=== PATIENT | male | born 1970 | race Caucasian/White ===

== ENCOUNTER 2016-10-13 09:02 | Day surgery (SDC) | payer OTHER ==
[2016-10-11 18:03] VITALS: BMI 35.4
[2016-10-13 09:33] LABS: BASOPHIL 0.9 % (0-2.0); EOSINOPHIL 3.3 % (0-4.5); MCH 31.2 pg (25.7-33.7); MCHC 33.9 g/dl (32.0-35.9); MEAN PLT VOLUME 8.7 fl (7.5-11.1); NEUTROPHILS 63.7 % (42.8-82.8); PLATELET COUNT 158 K/MM3 (134-434); RDW 13.3 % (11.9-15.9); WHITE BLOOD COUNT 6.3 K/mm3 (4.0-10.0)
[2016-10-13 10:35] LABS: ALBUMIN 3.5 g/dl (3.4-5.0); ALK PHOS 73 U/L (45-117); ANION GAP 10 (8-16); BILIRUBIN,TOTAL 0.6 mg/dL (0.2-1.0); CALCIUM 8.6 mg/dL (8.5-10.1); CO2 26 mmol/L (21-32); CREATININE 1.1 mg/dL (0.7-1.3); GLUCOSE,RANDOM 93 mg/dL (74-106); SGOT/AST 62 U/L (15-37); SGPT/ALT 59 U/L (12-78)
[2016-10-13] MEDS ORDERED: LIDOCAINE HCL 1%, 10 MG/ML (20ML VIAL) ONE (11:23)
[2016-10-13] MEDS ORDERED: HEPARIN NA (PORCINE) 5,000 UNITS/ML 1ML VIAL ONE ×2 (11:23→12:31)
[2016-10-13] MEDS ORDERED: oxyCODONE HCL 5 MG TABLET PO PRN (11:51)
[2016-10-13] MEDS ORDERED: PROMETHAZINE HCL 25 MG/1 ML VIAL IVPUSH PRN (11:51)
[2016-10-13] MEDS ORDERED: ONDANSETRON 4 MG/2 ML VIAL IVPUSH PRN (11:51)
[2016-10-13] MEDS ORDERED: MIDAZOLAM HCL 2 MG/2 ML SINGLE DOSE VIAL ONE ×2 (11:56→11:58)
[2016-10-13] MEDS ORDERED: LACTATED RINGERS SOLUTION 1,000 ML IV SCH (12:00)
[2016-10-13] MEDS ORDERED: ceFAZolin SODIUM 1 GM VIAL IVPB ONE (12:00)
[2016-10-13] MEDS ORDERED: ceFAZolin SODIUM 1 GM VIAL ONE (12:08)
[2016-10-13] MEDS ORDERED: LIDOCAINE HCL 1%, 10 MG/ML (50 mL VIAL) IJ ONE (12:12)
--- NOTE | 2016-10-13 13:01 | HP ---
Admitting History and Physical - Admission History of Present Illness: left lower ext claudication - Past Medical History Cardiovascular: Yes: Deep Vein Thrombosis (DVTs in left leg 2013, 2014), Hyperlipdemia - Smoking History Smoking history: Former smoker Have you smoked in the past 12 months: No If you are a former smoker, when did you quit?: 1989 - Alcohol/Substance Use Hx Alcohol Use: No Home Medications - Allergies Allergies/Adverse Reactions: Allergies Allergy/AdvReac Type Severity Reaction Status Date / Time No Known Drug Allergies Allergy Verified 10/13/16 09:44 - Home Medications Home Medications: Ambulatory Orders Gabapentin 400 mg PO TID 08/03/15 Sproul-3 Fatty Acids [Sproul-3] 1,000 mg PO DAILY 10/27/15 Ambien 10 mg PO HS 11/23/15 Rivaroxaban [Xarelto] 20 each PO DAILY #60 mg 02/08/16 Lasix - 20 mg PO Q2D 04/22/16 Oxycodone HCl 10 mg PO QID #120 tablet MDD 4 09/12/16 Physical Examination Vital Signs: Vital Signs Temperature 97.9 F 10/13/16 09:34 Pulse Rate 59 L 10/13/16 09:34 Respiratory Rate 16 10/13/16 09:34 Blood Pressure 128/84 10/13/16 09:34 O2 Sat by Pulse Oximetry (%) 97 10/13/16 09:36 Constitutional: Yes: Well Nourished Eyes: Yes: WNL HENT: Yes: WNL Neck: Yes: WNL Cardiovascular: Yes: WNL Respiratory: Yes: WNL Gastrointestinal: Yes: WNL Labs: CBC, BMP 10/13/16 09:22 10/13/16 09:22 Assessment/Plan Left lower ext claudication 1. for angiogram today
--- NOTE | 2016-10-13 13:04 | OP ---
Operative Note - Note: Operative Date: 10/13/16 Pre-Operative Diagnosis: LLE claudication Operation: Aortogram, LLE angiogram, Popliteal artery DCB angioplasty Findings: 75% stenosis distal popliteal artery Post-Operative Diagnosis: Same as Pre-op Surgeon: Loc Ramirez Anesthesia: Fractional Estimated Blood Loss (mls): 10 Operative Report Dictated: Yes
[2016-10-13 14:11] VITALS: TEMP 98.1
[2016-10-13 14:59] VITALS: BP 145/68; PULSE 56
--- NOTE | 2016-10-14 11:15 | OP ---
DATE OF OPERATION: 10/13/2016 PREOPERATIVE DIAGNOSIS: Left lower extremity claudication. POSTOPERATIVE DIAGNOSIS: Left lower extremity claudication. PROCEDURE: Aortogram, left lower extremity angiogram, popliteal artery drug-coated balloon angioplasty. SURGEON: Loc Juárez DO ANESTHESIA: Fractional. BLOOD LOSS: 10 mL. INDICATIONS: The patient is a 46-year-old male who comes in to our office with left lower extremity claudication. He has had an extensive history in his left lower extremity where he had thrombosis and he had open thrombectomy performed in the past with stent placement. He now had an ultrasound with us showing that beyond the stent in the popliteal artery below the knee he has a stenotic area of about 50%-70%, and now he is complaining of claudication at this juncture. It was decided that he would need an angiogram, and the patient came in through ambulatory surgery. The patient was consented for this procedure understanding all risks, benefits, and alternatives and was then taken to the operating room. DESCRIPTION OF PROCEDURE: Once in the operating room, he was laid on the operating room table in a supine manner. The area of the right groin was prepped and draped in a sterile surgical manner. We then injected 10 mL of lidocaine 2% in the area. We then went ahead and used our micropuncture needle to puncture the right common femoral artery. We placed our micropuncture wire and micropuncture sheath in a traditional 5-Arabic sheath. We then placed a 0.035 floppy guidewire up into the aorta followed by an Omni Flush catheter. We then shot an aortogram via hand injection showing that the aorta and the iliac arteries were without any disease. We then placed a 0.025 stiff guidewire up and over to the common femoral artery followed by an Omni Flush catheter. We then shot an angiogram of the left lower extremity showing that the common femoral artery, the profunda, the SFA is patent. The popliteal artery stent is patent, but beyond the stent there is a 70% stenosis in the below knee popliteal artery and the TP trunk. The patient's main runoff is the posterior tibial artery into the foot. At this point, we placed a 0.035 stiff guidewire down to the SFA. We took out our Omni Flush catheter and placed a 6 x 55 crossover sheath. We then went ahead and selectively crossed through the stent and down through the distal popliteal artery and placed it behind the posterior tibial artery. We then used a 5 x 4 Bard Lutonix drug-coated balloon and performed angioplasty of the below knee popliteal artery and the distal stent. Completion angiogram now showed that the popliteal artery was patent. There was good brisk flow, and there was good runoff into the foot. We then went ahead and brought our sheath up and over, and StarClose device was successfully deployed in the right common femoral artery. Pressure held for 5 minutes. After there was no bleeding, the area was wet and dried, and Dermabond was placed. During the procedure, the patient received 5000 units of IV heparin. The patient was transferred to the PACU in stable condition where the patient had a palpable PT pulse. LOC JUÁREZ DO NP/[id number]
== END 2016-10-13 15:14 | disposition home or self-care (01) ==
LOC: JASU-SURG 09:02
PROVIDERS: ATTEND Surgery Vascular Surgery
PROC: 047N3D1 Dilation of Left Popliteal Artery with Intraluminal Device, using Drug-Coated Balloon, Percutaneous Approach (ICD-10-PCS; principal; 2016-10-13 09:30)
DX: I70.212 Atherosclerosis of native arteries of extremities with intermittent claudication, left leg (principal); E78.5 Hyperlipidemia, unspecified; Z87.891 Personal history of nicotine dependence
CPT/HCPCS: 37226; C1874; C2623; 36415; 76000-TC; 80053; 85025; 85610; 94760; J1644

== ENCOUNTER 2021-03-01 13:18 | Emergency (ER) | payer OTHER ==
[2021-03-01 13:36] VITALS: BP 134/74; PULSE 96; TEMP 97.9; BMI 26.6
[2021-03-01 15:33] LABS: BASO % 0.9 % (0-2.0); EOS % 2.9 % (0-4.5); HEMATOCRIT 42.1 % (35.4-49); HEMOGLOBIN 14.4 GM/dL (11.7-16.9); LYMPH % 19.3 % (8-40); MCH 31.8 pg (25.7-33.7); MCHC 34.3 g/dl (32.0-35.9); MEAN CELL VOLUME 92.6 fl (80-96); MEAN PLT VOLUME 8.6 fl (7.5-11.1); MONO % 7.3 % (3.8-10.2); NEUT % 69.6 % (42.8-82.8); PLATELET COUNT 198 10^3/uL (134-434); RBC 4.54 M/mm3 (4.00-5.60); RDW 12.5 % (11.9-15.9); WHITE BLOOD COUNT 7.4 K/mm3 (4.0-10.0)
[2021-03-01 15:39] LABS: INR 0.96 (0.83-1.09); PROTHROMBIN TIME (PATIENT) 11.6 SEC (9.7-13.0)
[2021-03-01 15:55] LABS: CALCIUM 8.9 mg/dL (8.5-10.1)
[2021-03-01 15:56] LABS: ALBUMIN 3.8 g/dl (3.4-5.0); BLOOD UREA NITROGEN 12.2 mg/dL (7-18)
[2021-03-01 15:59] LABS: CREATININE 1.1 mg/dL (0.55-1.3)
[2021-03-01 16:00] LABS: BILIRUBIN,TOTAL 0.6 mg/dL (0.2-1); TOT PROT 7.3 g/dl (6.4-8.2)
[2021-03-01] MEDS ORDERED: ACETAMINOPHEN 1000 MG/100 ML VIAL (NON FORMULARY) IVPB ONE (17:17)
[2021-03-01] MEDS ORDERED: ACETAMINOPHEN INJECTION 100 ML IVPB ONE (17:20)
== END 2021-03-01 19:04 | disposition home or self-care (01) ==
LOC: JER 13:18
PROC: 3E0333Z Introduction of Anti-inflammatory into Peripheral Vein, Percutaneous Approach (ICD-10-PCS; principal; 2021-03-01)
DX: I73.9 Peripheral vascular disease, unspecified (principal); R10.32 Left lower quadrant pain
CPT/HCPCS: 36415; 80053; 85025; 85610; 93005; 93010; 93925-TC; 93971-TC; 99285-25; J0131

== ENCOUNTER 2021-09-11 12:36 | Emergency (ER) | payer OTHER ==
[2021-09-11 13:02] VITALS: BP 136/81; PULSE 62; TEMP 99.3; BMI 33.2
[2021-09-11] MEDS ORDERED: ACETAMINOPHEN 500 MG TABLET (FP) PO ONE (13:47)
[2021-09-11] MEDS ORDERED: ACETAMINOPHEN 325 MG TABLET (FP) ONE (13:49)
[2021-09-11] MEDS ORDERED: SODIUM CHLORIDE 0.9% 1000 ML INFUS.BAG IV ONE (14:15)
[2021-09-11 14:25] LABS: BASO % 0.5 % (0-2.0); HEMATOCRIT 45.6 % (35.4-49); HEMOGLOBIN 15.1 GM/dL (11.7-16.9); LYMPH % 18.5 % (8-40); MCH 30.7 pg (25.7-33.7); MCHC 33.2 g/dl (32.0-35.9); MEAN CELL VOLUME 92.5 fl (80-96); MEAN PLT VOLUME 9.1 fl (7.5-11.1); PLATELET COUNT 190 10^3/uL (134-434); RBC 4.93 M/mm3 (4.00-5.60); RDW 12.4 % (11.9-15.9); WHITE BLOOD COUNT 7.3 K/mm3 (4.0-10.0)
[2021-09-11 14:33] LABS: INR 0.97 (0.83-1.09); PROTHROMBIN TIME (PATIENT) 11.1 SEC (9.7-13.0)
[2021-09-11 14:36] LABS: ACTIVATED PTT 29.7 SECONDS (25.2-36.5)
[2021-09-11 14:58] LABS: ALBUMIN 3.7 g/dl (3.4-5.0); BLOOD UREA NITROGEN 12.2 mg/dL (7-18)
[2021-09-11 15:03] LABS: BILIRUBIN,TOTAL 0.4 mg/dL (0.2-1); TOT PROT 7.5 g/dl (6.4-8.2)
== END 2021-09-11 19:35 | disposition home or self-care (01) ==
LOC: JER 12:36
DX: R10.2 Pelvic and perineal pain (principal); K57.32 Diverticulitis of large intestine without perforation or abscess without bleeding
CPT/HCPCS: 36415; 75635-TC; 80053; 85025; 85610; 85730; 86850; 86900; 86901; 99284-25; Q9967

== ENCOUNTER 2022-06-01 12:33 | Observation (INO) | payer OTHER ==
[2022-06-01] MEDS ORDERED: ACETAMINOPHEN 1000 MG/100 ML BAG IVPB ONE (14:19)
[2022-06-01] MEDS ORDERED: ASPIRIN 81 MG CHEWABLE TABLETS PO ONE (14:29)
[2022-06-01] MEDS ORDERED: ASPIRIN 81 MG CHEWABLE TABLETS ONE (15:00)
[2022-06-01] MEDS ORDERED: ACETAMINOPHEN INJECTION 100 ML IVPB ONE (15:00)
[2022-06-01 15:39] LABS: BASO % 0.8 % (0-2.0); EOS % 3.4 % (0-4.5); HEMATOCRIT 43.7 % (35.4-49); LYMPH % 21.1 % (8-40); MCH 32.2 pg (25.7-33.7); MCHC 34.4 g/dl (32.0-35.9); MEAN CELL VOLUME 93.6 fl (80-96); MEAN PLT VOLUME 9.5 fl (7.5-11.1); MONO % 7.4 % (3.8-10.2); NEUT % 67.3 % (42.8-82.8); PLATELET COUNT 183 10^3/uL (134-434); RBC 4.66 M/mm3 (4.00-5.60); RDW 12.9 % (11.9-15.9); WHITE BLOOD COUNT 7.1 K/mm3 (4.0-10.0)
[2022-06-01 18:22] LABS: ALBUMIN 3.3 g/dl (3.4-5.0); CALCIUM 8.5 mg/dL (8.5-10.1)
[2022-06-01 18:25] LABS: CREATININE 0.9 mg/dL (0.55-1.3)
[2022-06-01 18:27] LABS: BILIRUBIN,TOTAL 0.5 mg/dL (0.2-1); TOT PROT 6.6 g/dl (6.4-8.2)
[2022-06-01] MEDS ORDERED: amLODIPine BESYLATE 5 MG TABLET (FP) PO ONE (21:17)
[2022-06-01 21:29] LABS: INR 0.98 (0.83-1.09); PROTHROMBIN TIME (PATIENT) 11.3 SEC (9.7-13.0)
[2022-06-01] MEDS ORDERED: amLODIPine BESYLATE 5 MG TABLET (FP) ONE (21:30)
[2022-06-02] MEDS ORDERED: ACETAMINOPHEN 325 MG TABLET (FP) PO ONE (01:02)
[2022-06-02 03:30] VITALS: BMI 32.9
[2022-06-02] MEDS: LOSARTAN POTASSIUM 50 MG TABLET PO SCH ×2 (06:23→09:28)
[2022-06-02 07:58] LABS: BASO % 0.8 % (0-2.0); EOS % 4.6 % (0-4.5); HEMATOCRIT 44.8 % (35.4-49); HEMOGLOBIN 15.1 GM/dL (11.7-16.9); LYMPH % 27.4 % (8-40); MCH 31.6 pg (25.7-33.7); MCHC 33.8 g/dl (32.0-35.9); MEAN CELL VOLUME 93.4 fl (80-96); MEAN PLT VOLUME 9.7 fl (7.5-11.1); MONO % 7.8 % (3.8-10.2); NEUT % 59.4 % (42.8-82.8); PLATELET COUNT 189 10^3/uL (134-434); RDW 12.7 % (11.9-15.9); WHITE BLOOD COUNT 6.9 K/mm3 (4.0-10.0)
[2022-06-02 08:19] LABS: ALBUMIN 3.5 g/dl (3.4-5.0); BLOOD UREA NITROGEN 14.1 mg/dL (7-18); CALCIUM 8.8 mg/dL (8.5-10.1)
[2022-06-02 08:21] LABS: BILIRUBIN,TOTAL 0.4 mg/dL (0.2-1); TOT PROT 6.9 g/dl (6.4-8.2)
[2022-06-02 08:23] LABS: CREATININE 0.9 mg/dL (0.55-1.3); PHOSPHOROUS 2.7 mg/dL (2.5-4.9)
[2022-06-02] MEDS: ENOXAPARIN NA (PORCINE) 40 MG/0.4 ML DISP.SYRIN SQ SCH (09:28)
[2022-06-02] MEDS ORDERED: LOSARTAN POTASSIUM 50 MG TABLET PO ONE (12:00)
[2022-06-02] MEDS ORDERED: CHLORTHALIDONE 25 MG TABLET PO SCH (14:00)
[2022-06-02] MEDS ORDERED: LACTATED RINGERS SOLUTION 1,000 ML/1,000 ML INFUS.BAG IV SCH (17:15)
[2022-06-02] MEDS ORDERED: ALPRAZolam 1 MG TABLET PO PRN (17:28)
[2022-06-02] MEDS: EZETIMIBE 10 MG TABLET (FP) PO SCH (17:32)
[2022-06-02 18:12] LABS: N-TERMINAL BNP 67.5 pg/ml (5-125)
[2022-06-02 21:17] LABS: LIPASE 425 U/L (73-393)
[2022-06-02] MEDS: amLODIPine BESYLATE 10 MG TABLET (FP) PO SCH (21:39)
[2022-06-02] MEDS: ZOLPIDEM TARTRATE 5 MG TABLET PO PRN (21:39)
[2022-06-02] MEDS ORDERED: amLODIPine BESYLATE 5 MG TABLET (FP) PO SCH (22:00)
[2022-06-03 07:45] LABS: BASO % 0.8 % (0-2.0); EOS % 3.9 % (0-4.5); HEMATOCRIT 46.1 % (35.4-49); HEMOGLOBIN 15.6 GM/dL (11.7-16.9); LYMPH % 20.5 % (8-40); MCH 31.4 pg (25.7-33.7); MCHC 33.9 g/dl (32.0-35.9); MEAN CELL VOLUME 92.8 fl (80-96); MEAN PLT VOLUME 9.5 fl (7.5-11.1); MONO % 6.6 % (3.8-10.2); NEUT % 68.2 % (42.8-82.8); PLATELET COUNT 183 10^3/uL (134-434); RBC 4.97 M/mm3 (4.00-5.60); WHITE BLOOD COUNT 6.9 K/mm3 (4.0-10.0)
[2022-06-03 08:10] LABS: ALBUMIN 3.4 g/dl (3.4-5.0); BLOOD UREA NITROGEN 12.5 mg/dL (7-18); CALCIUM 8.6 mg/dL (8.5-10.1)
[2022-06-03 08:13] LABS: BILIRUBIN,TOTAL 0.7 mg/dL (0.2-1); CREATININE 0.9 mg/dL (0.55-1.3)
[2022-06-03] MEDS ORDERED: ACETAMINOPHEN 325 MG TABLET (FP) PO ONE (11:21)
[2022-06-03] MEDS: LOSARTAN POTASSIUM 50 MG TABLET PO SCH (13:19)
[2022-06-03] MEDS: ENOXAPARIN NA (PORCINE) 40 MG/0.4 ML DISP.SYRIN SQ SCH ×2 (14:11→16:06)
[2022-06-03] MEDS: EZETIMIBE 10 MG TABLET (FP) PO SCH (15:54)
[2022-06-03] MEDS: METOCLOPRAMIDE HCL INJECTION 10 MG/2 ML VIAL IVPUSH PRN ×2 (16:05→21:31)
[2022-06-03] MEDS: LACTATED RINGERS SOLUTION 1,000 ML/1,000 ML INFUS.BAG IV SCH (16:07)
[2022-06-03] MEDS: FENOFIBRIC ACID 135 MG CAP PO SCH (19:16)
[2022-06-03] MEDS: CLOPIDOGREL BISULFATE 75 MG TABLET (FP) PO SCH (19:16)
[2022-06-03] MEDS: amLODIPine BESYLATE 10 MG TABLET (FP) PO SCH (22:13)
[2022-06-04] MEDS ORDERED: ONDANSETRON 4 MG/2 ML VIAL IVPUSH PRN (09:01)
[2022-06-04] MEDS ORDERED: ALBUTEROL SO4 HFA INHALER IH PRN (09:03)
[2022-06-04] MEDS: ENOXAPARIN NA (PORCINE) 40 MG/0.4 ML DISP.SYRIN SQ SCH (09:55)
[2022-06-04] MEDS: CLOPIDOGREL BISULFATE 75 MG TABLET (FP) PO SCH (09:55)
[2022-06-04] MEDS: LOSARTAN POTASSIUM 50 MG TABLET PO SCH (09:55)
[2022-06-04] MEDS: FENOFIBRIC ACID 135 MG CAP PO SCH (09:56)
[2022-06-04] MEDS: FAMOTIDINE 20 MG TABLET PO SCH ×2 (09:58→21:42)
[2022-06-04] MEDS: LACTATED RINGERS SOLUTION 1,000 ML/1,000 ML INFUS.BAG IV SCH (20:20)
[2022-06-04] MEDS: amLODIPine BESYLATE 10 MG TABLET (FP) PO SCH (21:42)
[2022-06-04] MEDS: ZOLPIDEM TARTRATE 5 MG TABLET PO PRN (22:00)
[2022-06-05 07:53] LABS: BASO % 0.8 % (0-2.0); HEMATOCRIT 51.8 % (35.4-49); HEMOGLOBIN 17.4 GM/dL (11.7-16.9); LYMPH % 18.6 % (8-40); MCH 31.5 pg (25.7-33.7); MCHC 33.5 g/dl (32.0-35.9); MEAN CELL VOLUME 94.1 fl (80-96); MEAN PLT VOLUME 9.4 fl (7.5-11.1); NEUT % 69.6 % (42.8-82.8); PLATELET COUNT 236 10^3/uL (134-434); WHITE BLOOD COUNT 9.8 K/mm3 (4.0-10.0)
[2022-06-05 08:17] LABS: CALCIUM 9.6 mg/dL (8.5-10.1)
[2022-06-05 08:18] LABS: BLOOD UREA NITROGEN 24.3 mg/dL (7-18)
[2022-06-05 08:21] LABS: CREATININE 1.2 mg/dL (0.55-1.3)
[2022-06-05] MEDS: LOSARTAN POTASSIUM 50 MG TABLET PO SCH (09:52)
[2022-06-05] MEDS: ENOXAPARIN NA (PORCINE) 40 MG/0.4 ML DISP.SYRIN SQ SCH (09:52)
[2022-06-05] MEDS: FENOFIBRIC ACID 135 MG CAP PO SCH (09:52)
[2022-06-05] MEDS: FAMOTIDINE 20 MG TABLET PO SCH ×2 (09:52→21:01)
[2022-06-05] MEDS: CLOPIDOGREL BISULFATE 75 MG TABLET (FP) PO SCH (09:52)
[2022-06-05] MEDS ORDERED: FLU VACC QS2022-23(6MOS UP)/PF 60 MCG/0.5 ML SYRINGE IM ONE (10:00)
[2022-06-05] MEDS: LACTATED RINGERS SOLUTION 1,000 ML/1,000 ML INFUS.BAG IV SCH (16:00)
[2022-06-05] MEDS: amLODIPine BESYLATE 10 MG TABLET (FP) PO SCH (21:01)
[2022-06-06 08:51] VITALS: RESP 18
[2022-06-06] MEDS: LOSARTAN POTASSIUM 50 MG TABLET PO SCH (09:11)
[2022-06-06] MEDS: FENOFIBRIC ACID 135 MG CAP PO SCH (11:03)
[2022-06-06] MEDS: CLOPIDOGREL BISULFATE 75 MG TABLET (FP) PO SCH (11:03)
[2022-06-06] MEDS: ENOXAPARIN NA (PORCINE) 40 MG/0.4 ML DISP.SYRIN SQ SCH (11:04)
[2022-06-06] MEDS: FAMOTIDINE 20 MG TABLET PO SCH (11:04)
[2022-06-06 12:45] VITALS: BP 118/72; PULSE 58; TEMP 98.1
== END 2022-06-06 17:41 | disposition home or self-care (01) ==
LOC: JER 12:33 → JERBED 18:40 → J4W 06-02 00:34
PROVIDERS: ADMIT Internal Medicine; ATTEND Internal Medicine
PROC: 3E033NZ Introduction of Analgesics, Hypnotics, Sedatives into Peripheral Vein, Percutaneous Approach (ICD-10-PCS; principal; 2022-06-01)
PROC: 3E023GC Introduction of Other Therapeutic Substance into Muscle, Percutaneous Approach (ICD-10-PCS; 2022-06-01)
PROC: 3E0234Z Introduction of Serum, Toxoid and Vaccine into Muscle, Percutaneous Approach (ICD-10-PCS; 2022-06-01)
PROC: 3E0337Z Introduction of Electrolytic and Water Balance Substance into Peripheral Vein, Percutaneous Approach (ICD-10-PCS; 2022-06-01)
PROC: 3E033GC Introduction of Other Therapeutic Substance into Peripheral Vein, Percutaneous Approach (ICD-10-PCS; 2022-06-01)
DX: R07.9 Chest pain, unspecified (principal); E78.5 Hyperlipidemia, unspecified; F41.9 Anxiety disorder, unspecified; Z91.199 Patient's noncompliance with other medical treatment and regimen due to unspecified reason; I10 Essential (primary) hypertension; E66.8 Other obesity; Z68.32 Body mass index [BMI] 32.0-32.9, adult; R00.1 Bradycardia, unspecified; I73.9 Peripheral vascular disease, unspecified; Z86.718 Personal history of other venous thrombosis and embolism; R10.13 Epigastric pain; Z91.040 Latex allergy status
CPT/HCPCS: 36415; 70450-TC; 71045-TC-FY; 74176-TC; 78452-TC; 80048; 80053; 80061; 80307; 82550; 82553; 83036; 83690; 83735; 83880; 84100; 84439; 84443; 84484; 85025; 85610; 86618; 93005; 93010; 93017; 93306-TC; 93880-TC; 96361; 96372; 96374; 96375; 97116-GP; 97161-GP; 99285-25; A9502; C9803-CS; G0378; Q2036; U0003; U0005

== ENCOUNTER 2023-02-25 11:17 | Emergency (ER) | payer OTHER ==
[2023-02-25 11:22] VITALS: BP 138/76; PULSE 68; RESP 18; TEMP 98.6; BMI 31.7
[2023-02-25] MEDS ORDERED: LACTATED RINGERS SOLUTION 1000 ML INFUS.BAG IV ONE (12:51)
[2023-02-25] MEDS ORDERED: ACETAMINOPHEN 1000 MG/100 ML BAG IVPB ONE (12:51)
[2023-02-25] MEDS ORDERED: METOCLOPRAMIDE HCL INJECTION 10 MG/2 ML VIAL IVPUSH ONE (12:52)
[2023-02-25] MEDS ORDERED: METOCLOPRAMIDE HCL INJECTION 10 MG/2 ML VIAL ONE (13:25)
[2023-02-25] MEDS ORDERED: ACETAMINOPHEN INJECTION 100 ML IVPB ONE (13:25)
[2023-02-25 14:23] LABS: BASO % 0.9 % (0-2.0); EOS % 1.9 % (0-4.5); HEMATOCRIT 39.8 % (35.4-49); HEMOGLOBIN 13.6 GM/dL (11.7-16.9); LYMPH % 16.8 % (8-40); MCH 31.9 pg (25.7-33.7); MCHC 34.2 g/dl (32.0-35.9); MEAN CELL VOLUME 93.4 fl (80-96); MEAN PLT VOLUME 8.6 fl (7.5-11.1); MONO % 7.9 % (3.8-10.2); NEUT % 72.5 % (42.8-82.8); PLATELET COUNT 230 10^3/uL (134-434); RBC 4.26 M/mm3 (4.00-5.60); RDW 12.5 % (11.9-15.9); WHITE BLOOD COUNT 7.2 K/mm3 (4.0-10.0)
[2023-02-25 14:41] LABS: POTASSIUM 3.7 mmol/L (3.5-5.1)
[2023-02-25 14:42] LABS: CALCIUM 9.3 mg/dL (8.5-10.1)
[2023-02-25 14:43] LABS: ALBUMIN 3.9 g/dl (3.4-5.0); BLOOD UREA NITROGEN 14.4 mg/dL (7-18)
[2023-02-25 14:46] LABS: CREATININE 1.1 mg/dL (0.55-1.3)
[2023-02-25 14:48] LABS: BILIRUBIN,TOTAL 0.4 mg/dL (0.2-1); INR 1.09 (0.83-1.09); PROTHROMBIN TIME (PATIENT) 12.6 SEC (9.7-13.0); TOT PROT 6.9 g/dl (6.4-8.2)
[2023-02-25 15:27] LABS: PH,URINE 5.5 (5.0-8.0); URINE APPEARANCE CLEAR; URINE BILIRUBIN NEGATIVE (NEGATIVE); URINE COLOR YELLOW; URINE GLUCOSE (UA) NEGATIVE (NEGATIVE); URINE KETONE NEGATIVE (NEGATIVE); URINE LEUK ESTERASE NEGATIVE (NEGATIVE); URINE NITRITE NEGATIVE (NEGATIVE); URINE PROTEIN TRACE (NEGATIVE)
[2023-02-25] MEDS ORDERED: KETOROLAC TROMETHAMINE 15 MG/ML VIAL IVPUSH ONE (15:36)
[2023-02-25] MEDS ORDERED: KETOROLAC TROMETHAMINE 15 MG/ML VIAL ONE (16:16)
== END 2023-02-25 20:05 | disposition home or self-care (01) ==
LOC: JER 11:17
PROC: 3E033NZ Introduction of Analgesics, Hypnotics, Sedatives into Peripheral Vein, Percutaneous Approach (ICD-10-PCS; principal; 2023-02-25)
PROC: 3E0333Z Introduction of Anti-inflammatory into Peripheral Vein, Percutaneous Approach (ICD-10-PCS; 2023-02-25)
PROC: 3E033GC Introduction of Other Therapeutic Substance into Peripheral Vein, Percutaneous Approach (ICD-10-PCS; 2023-02-25)
DX: M54.2 Cervicalgia (principal); R07.9 Chest pain, unspecified; M54.9 Dorsalgia, unspecified; R10.9 Unspecified abdominal pain; M25.512 Pain in left shoulder; M25.562 Pain in left knee; M79.661 Pain in right lower leg; R42 Dizziness and giddiness; V43.52XA Car driver injured in collision with other type car in traffic accident, initial encounter; Y93.I9 Activity, other involving external motion; Z20.822 Contact with and (suspected) exposure to COVID-19
CPT/HCPCS: 0241U-QW; 36415; 70450-TC; 70498-TC; 71045-TC-FY; 71260-TC; 72125-TC; 72128-TC; 72131-TC; 74177-TC; 80053; 81003; 84484; 85025; 85610; 85730; 86850; 86900; 86901; 87086; 93005; 93010; 99285-25

== ENCOUNTER 2023-06-17 09:47 | Emergency (ER) | payer OTHER ==
[2023-06-17 09:53] VITALS: BP 114/59; PULSE 90; RESP 18; TEMP 97.9; BMI 31.0
== END 2023-06-17 11:02 | disposition home or self-care (01) ==
LOC: JERFT 09:47
DX: K08.89 Other specified disorders of teeth and supporting structures (principal); R68.84 Jaw pain; R22.0 Localized swelling, mass and lump, head; K05.10 Chronic gingivitis, plaque induced; K02.7 Dental root caries
CPT/HCPCS: 99283-25